=== PATIENT | male | born 1975 | race Hispanic/Latino ===

== ENCOUNTER 2020-11-09 09:30 | Outpatient (CLI) | payer OTHER ==
--- NOTE | 2020-11-09 12:09 | Magnetic Resonance Report ---
MR brain wo/w con INDICATION / CLINICAL INFORMATION: Seizures. Right-sided blurry vision. TECHNIQUE: Multiplanar, multisequence MR images of the brain were obtained. COMPARISON: None available. FINDINGS: INTRACRANIAL: No restricted diffusion. No hemorrhage. Ventricular caliber is normal. No extra-axial c ollection. No mass. No herniation. Major intracranial vascular flow voids are preserved. A few scatt ered T2 signal white matter hyperintensities with the largest being in the right frontal juxtacortica l white matter on image 18 of series 6 measuring approximately 5 mm. ORBITS: The optic chiasm appears within normal limits. There is enhancement of the right optic nerve. Intraconal and extra conal fat planes are preserved. Cavernous sinuses are symmetric. SINUSES / MASTOIDS: No significant abnormality of visualized sinuses and mastoid air cells. ADDITIONAL FINDINGS: None. IMPRESSION: 1. Findings consistent with right optic neuritis. Small quanitty of T2 signal white matter hyperinten sities with a more prominent lesion seen in the right frontal white matter. Findings are nonspecific but multiple sclerosis is a consideration in this setting. Signer Name: Clinton Garcia MD Signed: 11/09/2020 11:59 AM Workstation Name: [id number]
== END 2020-11-09 09:31 | disposition home or self-care (01) ==
LOC: MRI 09:30
PROVIDERS: ATTEND Specialist
DX: G37.8 Other specified demyelinating diseases of central nervous system (principal); R90.82 White matter disease, unspecified
CPT/HCPCS: 70553; A9575